=== PATIENT | male | born 1990 | race Caucasian/White ===

== ENCOUNTER 2017-02-02 21:02 | Emergency (ER) | payer BC, OTHER ==
[2017-02-02 21:07] VITALS: BP 137/56; PULSE 87; TEMP 98.5; BMI 25.7
--- NOTE | 2017-02-02 21:53 | PDOC ---
History of Present Illness - General History Source: Patient Exam Limitations: No Limitations - History of Present Illness Initial Comments: 02/02/17 21:54 Patient is a 26 year old male who presents today with right ankle pain. Patient states that he was running and his leg fell in the ditch. He states that he felt a pop in the right ankle. Patient reports that he popped it back in. Patient reports pain to the right ankle. He also reports worse pain with ROM and weight bearing. He denies any head trauma or LOC. This is not a work related injury. <Ara Rios - Last Filed: 02/02/17 21:57> <Dea So - Last Filed: 02/02/17 22:53> - General Chief Complaint: Injury Stated Complaint: INJURY Time Seen by Provider: 02/02/17 21:41 Past History <Ara Rios - Last Filed: 02/02/17 21:57> - Psycho/Social/Smoking Cessation Hx Suicidal Ideation: No Smoking History: Never smoked <Dea So - Last Filed: 02/02/17 22:53> - Past Medical History Allergies/Adverse Reactions: Allergies Allergy/AdvReac Type Severity Reaction Status Date / Time Cephalosporins Allergy Verified 02/02/17 21:08 Review of Systems - Review of Systems Able to Perform ROS?: Yes Comments:: 02/02/17 21:55 CONSTITUTIONAL: Absent: fever, no chills, no fatigue EYES: Absent: visual changes ENT: Absent: ear pain, no sore throat CARDIOVASCULAR: Absent: chest pain, no palpitations RESPIRATORY: Absent: cough, no SOB GI: Absent: abdominal pain, no nausea, no vomiting, no constipation, no diarrhea GENITOURINARY: Absent: dysuria, no frequency, no hematuria MUSCULOSKELETAL: Present: right ankle pain Absent: back pain, no myalgia SKIN: Absent: rash <Ara Rios - Last Filed: 02/02/17 21:57> *Physical Exam - Vital Signs Last Vital Signs Temp Pulse Resp BP Pulse Ox 98.5 F 87 20 137/56 99 02/02/17 21:04 02/02/17 21:04 02/02/17 21:04 02/02/17 21:04 02/02/17 21:04 - Physical Exam Comments: 02/02/17 21:56 GENERAL: Well-appearing, well-nourished. No apparent distress. HEENT: Normocephalic, atraumatic. PERRL, EOM intact. CARDIOVASCULAR: Normal S1, S2. Regular rate and rhythm. PULMONARY: Clear to auscultation bilaterally. ABDOMEN: Soft, non-distended, non-tender. EXTREMITIES: (+)Good sensation throughout, Limited ROM of the right ankle, Able to weight bear with some pain. No gross deformities. SKIN: Warm, dry. No rash NEUROLOGICAL: No focal neurological deficits. <Ara Rios - Last Filed: 02/02/17 21:57> - Vital Signs Last Vital Signs Temp Pulse Resp BP Pulse Ox 98.5 F 87 20 137/56 99 02/02/17 21:04 02/02/17 21:04 02/02/17 21:04 02/02/17 21:04 02/02/17 21:04 <Dea So - Last Filed: 02/02/17 22:53> ED Treatment Course - RADIOLOGY Radiograph Interpretation: 02/02/17 22:35 no obvious fracture. official read pending. 02/02/17 22:52 Imaging medical sonographer: No ankle fracture. soft tissue swelling. <Dea So - Last Filed: 02/02/17 22:53> *DC/Admit/Observation/Transfer - Attestations Scribe Attestion: 02/02/17 21:56 Documentation prepared by KENYA Jaramillo, acting as medical office asst for Dea So NP. <Ara Rios - Last Filed: 02/02/17 21:57> <Dea So - Last Filed: 02/02/17 22:53> Diagnosis at time of Disposition: Moderate right ankle sprain Qualifiers: Encounter type: initial encounter Qualified Code(s): S93.401A - Sprain of unspecified ligament of right ankle, initial encounter - Discharge Dispostion Disposition: HOME - Referrals Referrals: Vinicio Robles MD [Primary Care Provider] - Ke Mcghee MD [Staff Physician] - - Patient Instructions Printed Discharge Instructions: DI for Ankle Dislocation Additional Instructions: follow up with your orthopedic as soon as possible rest ICE, elevate your extremity. take tylenol/ ibuprofen - Post Discharge Activity Work/School Note: Back to Work
[2017-02-02] MEDS ORDERED: IBUPROFEN 600 MG TABLET (FP) PO ONE ×2 (22:29→22:30)
== END 2017-02-02 22:52 | disposition home or self-care (01) ==
LOC: JERFT 21:02
DX: S93.401A Sprain of unspecified ligament of right ankle, initial encounter (principal); W17.2XXA Fall into hole, initial encounter; Y93.89 Activity, other specified; Y92.89 Other specified places as the place of occurrence of the external cause
CPT/HCPCS: 73610-TC-RT; 73630-TC-RT; 99281-25

== ENCOUNTER 2020-07-25 21:26 | Emergency (ER) | payer OTHER ==
[2020-07-25 21:39] VITALS: BP 130/77; PULSE 75; TEMP 97.7; BMI 25.1
== END 2020-07-25 22:32 | disposition home or self-care (01) ==
LOC: FER 21:26
DX: S60.221A Contusion of right hand, initial encounter (principal)
CPT/HCPCS: 73140-TC-RT-FY; 99283-25